=== PATIENT | male | born 1970 | race Hispanic/Latino ===

== ENCOUNTER 2017-11-18 17:39 | Emergency (ER) | payer SELFPAY ==
[2017-11-18] MEDS ORDERED: MORPHINE 4 MG/ML SYR ONE ×3 (18:12→22:27)
[2017-11-18] MEDS ORDERED: NA CHLORIDE 0.9% 1,000 ML ONE (18:12)
[2017-11-18] MEDS ORDERED: ONDANSETRON 4 MG/2 ML VIAL ONE ×2 (18:12→19:30)
[2017-11-18 18:15] LABS: Absolute Lymphocytes (CBC) 1.1 K/uL (0.7-4.9); Absolute Monocytes 0.3 K/uL (0.1-1.3); Absolute Neutrophil 9.1 K/uL (1.8-8.0); Basophils % 0.5 % (0-1.3); Eosinophils % 0.6 % (0-4.4); Hematocrit 43.8 % (39.6-49.0); Lymphocytes % 10.6 % (15.3-44.8); MCH 31.2 pg (27.0-35.0); MCV 89.5 fL (80-100); MPV 7.3 fL (7.6-11.3); Monocytes % 3.1 % (3.3-12.3)
[2017-11-18 18:38] LABS: ALT/SGPT 50 U/L (12-78); AST/SGOT 28 U/L (15-37); Albumin 3.9 g/dL (3.4-5.0); Alkaline Phosphatase 90 U/L (45-117); Amylase Level 53 U/L (25-115); BUN Blood Urea Nitrogen 19 mg/dL (7-18); Bicarbonate 29 mmol/L (21-32); Bilirubin Direct < 0.1 mg/dL (0-0.2); Bilirubin Total 0.4 mg/dL (0.2-1.0); Glucose Level 120 mg/dL (74-106); Lipase 185 U/L (73-393); Potassium 3.9 mmol/L (3.5-5.1); Protein, Total 8.3 g/dL (6.4-8.2); Sodium Level 140 mmol/L (136-145)
[2017-11-18 18:42] LABS: Blood Morphology Comment NOT SEEN (NOT SEEN); Platelet Estimate ADEQ; Urine White Blood Cell Casts OK
--- NOTE | 2017-11-18 20:34 | RAD REPORT ---
EXAM DESCRIPTION: CT - Abdomen Pelvis W Contrast - 11/18/2017 8:21 pm CLINICAL HISTORY: Right lower quadrant pain COMPARISON: None. TECHNIQUE: Biphasic, helical CT imaging of the abdomen and pelvis was performed following 100 ml non -ionic IV contrast. Oral contrast was given. All CT scans are performed using dose optimization technique as appropriate and may include automated exposure control or mA/KV adjustment according to patient size. FINDINGS: No suspicious findings in the lung bases. The liver, spleen, and pancreas show no suspicious findings. Gallbladder and biliary tree are also wi thout suspicious finding. Large area of diminished enhancement is seen involving 40-50% of the right renal parenchyma. No overa ll edema of the kidney and no perinephric stranding seen. Left kidney shows a normal enhancement shmuel malachi. No urinary bladder, prostate gland or seminal vesicle abnormality. In the acute clinical setting this is most likely a right-sided pyelonephritis. No abnormal enhancement of the ureter. Ischemic in jury to the kidney is possible though the patient is relatively young and there is no atherosclerotic change in the aorta. This single right renal artery appears to enhance normally into the pelvis. No dilated bowel loops or bowel wall thickening. The appendix is normal. No free air, free fluid or i nflammatory stranding. No hernia, mass or bulky lymphadenopathy. No adrenal abnormality. No suspicious bony findings. IMPRESSION: Abnormal, significant diminished enhancement involving 40-50% of the right renal parench yma. Right kidney does not appear edematous and there is no perinephric stranding. No enhancement of the jacobs of the ureter. Pyelonephritis would be the most likely etiology but needs correlation with history and any UA abnorm ality. Ischemic injury to the kidney is not excluded. However, the patient has no evidence for vascul ar disease. The right renal artery appears to enhance normally. No appendicitis or acute GI process.
[2017-11-18] MEDS ORDERED: CEFTRIAXONE/SWI 1gm 1 GM/10 ML SYR ONE (21:37)
[2017-11-18 21:45] LABS: Urine Amorphous Sediment 3+ /HPF (NONE SEEN); Urine Bacteria <20 /HPF (NONE SEEN); Urine Culture Reflex Order NOT NEEDED; Urine RBC <5 /HPF (NONE SEEN)
[2017-11-18 21:46] LABS: Urine Blood TRACE (NEG); Urine Glucose NEGATIVE (NEG); Urine Protein NEGATIVE (NEG); Urine pH 7.5 (5.0-7.0)
--- NOTE | 2017-11-18 22:57 | ER ---
Nurse's Notes [facility] Name: Kenneth Garner Age: 47 yrs Sex: Male : 1970 Arrival Date: 11/18/2017 Time: 17:42 Bed 13 Private MD: None, None Diagnosis: Unspecified abdominal pain Presentation: 11/18 17:44 Presenting complaint: Patient states: RLQ abdominal pain since this AM. Transition of aj care: patient was not received from another setting of care. Onset of symptoms was November 18, 2017. Risk Assessment: Do you want to hurt yourself or someone else? Patient reports no desire to harm self or others. Initial Sepsis Screen: Does the patient meet any 2 criteria? No. Patient's initial sepsis screen is negative. Does the patient have a suspected source of infection? No. Patient's initial sepsis screen is negative. Care prior to arrival: None. 17:44 Method Of Arrival: Ambulatory aj 17:44 Acuity: HARJINDER 3 aj Triage Assessment: 17:45 General: Appears in no apparent distress. uncomfortable, Behavior is calm, cooperative, aj appropriate for age. Pain: Complains of pain in right lower quadrant. Neuro: Level of Consciousness is awake, alert, obeys commands, Oriented to person, place, time, situation, Appropriate for age. Respiratory: Airway is patent Respiratory effort is even, unlabored, Respiratory pattern is regular, symmetrical. GI: Abdomen is flat, Reports lower abdominal pain, nausea. Derm: Skin is intact, is healthy with good turgor, Skin is pink, warm \T\ dry. normal. Historical: - Allergies: 17:45 No Known Allergies; aj - Home Meds: 17:45 None [Active]; aj - PMHx: 17:45 None; aj - PSHx: 17:45 None; aj - Immunization history:: Adult Immunizations up to date. - Social history:: Smoking status: Patient/guardian denies using tobacco. - Ebola Screening: : Patient negative for fever greater than or equal to 101.5 degrees Fahrenheit, and additional compatible Ebola Virus Disease symptoms Patient denies exposure to infectious person Patient denies travel to an Ebola-affected area in the 21 days before illness onset No symptoms or risks identified at this time. Screenin:00 Abuse screen: Denies threats or abuse. Denies injuries from another. Nutritional hb screening: No deficits noted. Tuberculosis screening: No symptoms or risk factors identified. Fall Risk None identified. Assessment: 18:00 General: Appears in no apparent distress. uncomfortable, Behavior is calm, cooperative. hb Pain: Pain currently is 8 out of 10 on a pain scale. Neuro: Level of Consciousness is awake, alert, obeys commands, Oriented to person, place, time, situation. Cardiovascular: Capillary refill < 3 seconds Patient's skin is warm and dry. Respiratory: Airway is patent Trachea midline Respiratory effort is even, unlabored, Respiratory pattern is regular, symmetrical, Breath sounds are clear bilaterally. GI: Abdomen is flat, Bowel sounds present X 4 quads. Abd is soft X 4 quads Abdomen is tender to palpation in right lower quadrant Reports lower abdominal pain, nausea. : No signs and/or symptoms were reported regarding the genitourinary system. EENT: No signs and/or symptoms were reported regarding the EENT system. Derm: Skin is intact, is healthy with good turgor, Skin is pink, warm \T\ dry. Musculoskeletal: No signs and/or symptoms reported regarding the musculoskeletal system. 18:26 Reassessment: Pt finished drinking oral contrast, CT notfied. hb 19:10 General: Appears uncomfortable, Behavior is calm, cooperative. Pain: Complains of pain ea in right lower quadrant Pain currently is 4 out of 10 on a pain scale. Quality of pain is described as aching, Alleviated by medications. Neuro: Level of Consciousness is awake, alert, obeys commands, Oriented to person, place, time, situation. Cardiovascular: Patient's skin is warm and dry. Respiratory: Airway is patent Respiratory effort is even, unlabored, Respiratory pattern is regular, symmetrical, Breath sounds are clear bilaterally. GI: Abdomen is flat, Bowel sounds present X 4 quads. Abd is soft X 4 quads Abdomen is tender to palpation in right lower quadrant Reports lower abdominal pain. : No signs and/or symptoms were reported regarding the genitourinary system. EENT: No signs and/or symptoms were reported regarding the EENT system. Derm: Skin is pink, warm \T\ dry. Musculoskeletal: No signs and/or symptoms reported regarding the musculoskeletal system. 20:30 Reassessment: Patient and/or family updated on plan of care and expected duration. Pain ea level reassessed. Patient is alert, oriented x 3, equal unlabored respirations, skin warm/dry/pink. 21:45 Reassessment: Patient and/or family updated on plan of care and expected duration. Pain ea level reassessed. Patient is alert, oriented x 3, equal unlabored respirations, skin warm/dry/pink. 22:14 Reassessment: Patient and/or family updated on plan of care and expected duration. Pain ea level reassessed. Patient is alert, oriented x 3, equal unlabored respirations, skin warm/dry/pink. Vital Signs: 17:45 BP 144 / 90; Pulse 57; Resp 20; Temp 97.9; Pulse Ox 98% on R/A; Weight 68.04 kg; Height aj 5 ft. 9 in. (175.26 cm); 18:27 BP 134 / 92; Pulse 61; Resp 15; Pulse Ox 100% on R/A; hb 19:06 Pain 4/10; ea 19:15 BP 138 / 97; Pulse 57; Resp 18; Pulse Ox 98% on R/A; Pain 4/10; ea 20:00 BP 117 / 78; Pulse 57; Resp 18; Pulse Ox 97% on R/A; Pain 4/10; ea 21:58 BP 138 / 92; Pulse 57; Resp 18; Pulse Ox 99% ; ea 22:58 BP 113 / 77; Pulse 52; Resp 18; Pulse Ox 97% on R/A; Pain 0/10; ea 17:45 Body Mass Index 22.15 (68.04 kg, 175.26 cm) ED Course: 17:42 Patient arrived in ED. mr 17:42 None, None is Private Physician. mr 17:45 Triage completed. aj 17:45 Arm band placed on right wrist. Patient placed in an exam room. aj 17:51 Antoine Hoff, ARTUR is PHCP. pm1 17:51 Kenny Corea MD is Attending Physician. pm1 18:00 Patient has correct armband on for positive identification. Bed in low position. Call hb light in reach. Side rails up X 1. 18:07 Cierra Rodriguez, RN is Primary Nurse. hb 18:09 Initial lab(s) drawn, by ct, sent to lab. Inserted saline lock: 18 gauge in right dh3 antecubital area, using aseptic technique. Blood collected. 19:15 Primary Nurse role handed off by Cierra Rodriguez, MAYNOR rg2 19:27 Lizzette Torres, MAYNOR is Primary Nurse. ea 20:[address] nj 20:21 CT completed. Patient tolerated procedure well. Patient moved back from CT. nj 20:21 CT Abd/Pelvis - W/Contrast In Process Unspecified. EDMS 22:10 Attending Physician role handed off by Kenny Corea MD kdr 22:10 Олег Rios MD is Attending Physician. kdr 22:56 Chandu Campbell MD is Referral Physician. pm1 23:05 IV discontinued, intact, bleeding controlled, No redness/swelling at site. Pressure ea dressing applied. 23:13 No provider procedures requiring assistance completed. ea Administered Medications: 18:13 Drug: Zofran 4 mg Route: IVP; Site: right antecubital; hb 19:06 Follow up: Response: No adverse reaction; Marked relief of symptoms ea 18:14 Drug: NS 0.9% 1000 ml Route: IV; Rate: 1000 ml; Site: right antecubital; hb 19:00 Follow up: Response: No adverse reaction; IV Status: Completed infusion; IV Intake: ea 1000ml 18:14 Drug: morphine 4 mg Route: IVP; Site: right antecubital; hb 19:06 Follow up: Pain 4/10 Adult; Response: No adverse reaction; Pain is decreased ea 19:40 Drug: morphine 4 mg Route: IVP; Site: right forearm; ea 20:00 Follow up: Response: No adverse reaction; Pain is decreased ea 19:41 Drug: Zofran 4 mg Route: IVP; Site: right forearm; ea 20:00 Follow up: Response: No adverse reaction; Marked relief of symptoms ea 21:41 Drug: Rocephin 1 grams Route: IV; Rate: calculated rate; Site: right antecubital; ea 22:30 Follow up: Response: No adverse reaction; IV Status: Completed infusion ea 22:27 Drug: morphine 4 mg Route: IVP; Site: right antecubital; ea 23:16 Follow up: Response: No adverse reaction; Pain is decreased ea Intake: 19:00 IV: 1000ml; Total: 1000ml. ea Outcome: 22:57 Discharge ordered by . pm1 23:05 Condition: good ea 23:05 Discharge instructions given to patient, family, Instructed on discharge instructions, follow up and referral plans. medication usage, Demonstrated understanding of instructions, follow-up care, medications, Prescriptions given X 1. 23:13 Discharged to home via wheelchair, with family. ea 23:17 Patient left the ED. ea Signatures: Dispatcher [employer] EDMS Lincoln Reeves rg2 Haven Alford, MAYNOR RN Олег Richardson MD MD kdr Rivera, Maria mr VannaAntoine loredo, VICTORIAN LITERATURE PROFESSOR VICTORIAN LITERATURE PROFESSOR pm1 Cierra Rodriguez, MAYNOR RN Rishi Garza Deanna 3 Lizzette Torres RN RN ea
--- NOTE | 2017-11-18 22:57 | EDPHYS ---
Physician Documentation [facility] Name: Kenneth Garner Age: 47 yrs Sex: Male : 1970 Arrival Date: 11/18/2017 Time: 17:42 Bed 13 Private MD: None, None ED Physician Олег Rios HPI: 11/18 18:02 This 47 yrs old Male presents to ER via Ambulatory with complaints of pm1 Abdominal Pain, Nausea. 18:02 The patient presents with abdominal pain right lower quadrant. Onset: The pm1 symptoms/episode began/occurred this morning. The symptoms do not radiate. Associated signs and symptoms: Pertinent positives: nausea, subjective fever, Pertinent negatives: diarrhea, vomiting. The symptoms are described as achy. Modifying factors: The symptoms are alleviated by nothing, the symptoms are aggravated by walking. Severity of pain: in the emergency department the pain is actually worse. The patient has not experienced similar symptoms in the past. The patient has not recently seen a physician, and does not have an established primary care provider. Historical: - Allergies: 17:45 No Known Allergies; aj - Home Meds: 17:45 None [Active]; aj - PMHx: 17:45 None; aj - PSHx: 17:45 None; aj - Immunization history:: Adult Immunizations up to date. - Social history:: Smoking status: Patient/guardian denies using tobacco. - Ebola Screening: : Patient negative for fever greater than or equal to 101.5 degrees Fahrenheit, and additional compatible Ebola Virus Disease symptoms Patient denies exposure to infectious person Patient denies travel to an Ebola-affected area in the 21 days before illness onset No symptoms or risks identified at this time. ROS: 18:02 Constitutional: Negative for fever, chills, and weight loss, Eyes: Negative for injury, pm1 pain, redness, and discharge, ENT: Negative for injury, pain, and discharge, Neck: Negative for injury, pain, and swelling, Cardiovascular: Negative for chest pain, palpitations, and edema, Respiratory: Negative for shortness of breath, cough, wheezing, and pleuritic chest pain. 18:02 Back: Negative for injury and pain, : Negative for injury, bleeding, discharge, and swelling, MS/Extremity: Negative for injury and deformity, Skin: Negative for injury, rash, and discoloration, Neuro: Negative for headache, weakness, numbness, tingling, and seizure. 18:02 Abdomen/GI: Positive for abdominal pain, nausea, Negative for vomiting, diarrhea. Exam: 18:02 Constitutional: This is a well developed, well nourished patient who is awake, alert, pm1 and in no acute distress. Head/Face: Normocephalic, atraumatic. Eyes: Pupils equal round and reactive to light, extra-ocular motions intact. Lids and lashes normal. Conjunctiva and sclera are non-icteric and not injected. Cornea within normal limits. Periorbital areas with no swelling, redness, or edema. ENT: Nares patent. No nasal discharge, no septal abnormalities noted. Tympanic membranes are normal and external auditory canals are clear. Oropharynx with no redness, swelling, or masses, exudates, or evidence of obstruction, uvula midline. Mucous membranes moist. Neck: Trachea midline, no thyromegaly or masses palpated, and no cervical lymphadenopathy. Supple, full range of motion without nuchal rigidity, or vertebral point tenderness. No Meningismus. Chest/axilla: Normal chest wall appearance and motion. Nontender with no deformity. No lesions are appreciated. Cardiovascular: Regular rate and rhythm with a normal S1 and S2. No gallops, murmurs, or rubs. Normal PMI, no JVD. No pulse deficits. Respiratory: Lungs have equal breath sounds bilaterally, clear to auscultation and percussion. No rales, rhonchi or wheezes noted. No increased work of breathing, no retractions or nasal flaring. 18:02 Back: No spinal tenderness. No costovertebral tenderness. Full range of motion. Skin: Warm, dry with normal turgor. Normal color with no rashes, no lesions, and no evidence of cellulitis. MS/ Extremity: Pulses equal, no cyanosis. Neurovascular intact. Full, normal range of motion. 18:02 Abdomen/GI: Inspection: abdomen appears normal, Palpation: soft, mild abdominal tenderness, in the right lower quadrant, mass, is not appreciated, rebound tenderness, is not appreciated. 18:02 Neuro: Orientation: is normal, Motor: moves all fours. Vital Signs: 17:45 BP 144 / 90; Pulse 57; Resp 20; Temp 97.9; Pulse Ox 98% on R/A; Weight 68.04 kg; Height aj 5 ft. 9 in. (175.26 cm); 18:27 BP 134 / 92; Pulse 61; Resp 15; Pulse Ox 100% on R/A; hb 19:06 Pain 4/10; ea 19:15 BP 138 / 97; Pulse 57; Resp 18; Pulse Ox 98% on R/A; Pain 4/10; ea 20:00 BP 117 / 78; Pulse 57; Resp 18; Pulse Ox 97% on R/A; Pain 4/10; ea 21:58 BP 138 / 92; Pulse 57; Resp 18; Pulse Ox 99% ; ea 22:58 BP 113 / 77; Pulse 52; Resp 18; Pulse Ox 97% on R/A; Pain 0/10; ea 17:45 Body Mass Index 22.15 (68.04 kg, 175.26 cm) aj MDM: 17:54 Patient medically screened. pm1 22:50 Physician consultation: Soham Garza MD was called at 22:45, was contacted at 22:45, pm1 regarding consult, patient's condition, recommends consultation with urology. Unlikely pyelonephritis or ischemic injury. Possibly mass. 22:55 ED course: Message left with Dr. Campbell. Discussed consultation with Dr. Garza with Dr. letty Rios and he recommends out patient follow up with Dr. Campbell. No need for admission. 22:56 Data reviewed: vital signs. Data interpreted: Pulse oximetry: on room air is 99 %. pm1 Interpretation: normal. Counseling: I had a detailed discussion with the patient and/or guardian regarding: the historical points, exam findings, and any diagnostic results supporting the discharge/admit diagnosis, lab results, radiology results, the need for outpatient follow up, a urologist, to return to the emergency department if symptoms worsen or persist or if there are any questions or concerns that arise at home. 11/18 18:01 Order name: Amylase, Serum; Complete Time: 18:48 pm1 11/18 18:01 Order name: Basic Metabolic Panel; Complete Time: 18:48 pm1 11/18 18:01 Order name: CBC with Diff; Complete Time: 18:48 pm1 11/18 18:01 Order name: Creatinine for Radiology; Complete Time: 18:48 pm1 11/18 18:01 Order name: Hepatic Function; Complete Time: 18:48 pm1 11/18 18:01 Order name: Lipase; Complete Time: 18:48 pm1 11/18 18:01 Order name: Urine Microscopic Only; Complete Time: 22:10 pm1 11/18 18:01 Order name: CT Abd/Pelvis - W/Contrast; Complete Time: 20:38 pm1 11/18 18:17 Order name: CBC Smear Scan; Complete Time: 18:48 EDMS 11/18 20:42 Order name: Blood Culture Adult (2) pm1 11/18 20:42 Order name: Urine Culture pm1 11/18 20:43 Order name: Blood Culture EDMS 11/18 21:19 Order name: Urine Dipstick--Ancillary (enter results) rg2 11/18 21:20 Order name: Urine Dipstick-Ancillary; Complete Time: 22:10 EDMS 11/18 18:01 Order name: IV Saline Lock; Complete Time: 18:10 pm1 11/18 18:01 Order name: Labs collected and sent; Complete Time: 18:10 pm1 11/18 18:01 Order name: Urine Dipstick-Ancillary (obtain specimen); Complete Time: 21:42 pm1 11/18 18:01 Order name: NPO; Complete Time: 18:10 pm1 Administered Medications: 18:13 Drug: Zofran 4 mg Route: IVP; Site: right antecubital; hb 19:06 Follow up: Response: No adverse reaction; Marked relief of symptoms ea 18:14 Drug: NS 0.9% 1000 ml Route: IV; Rate: 1000 ml; Site: right antecubital; hb 19:00 Follow up: Response: No adverse reaction; IV Status: Completed infusion; IV Intake: ea 1000ml 18:14 Drug: morphine 4 mg Route: IVP; Site: right antecubital; hb 19:06 Follow up: Pain 4/10 Adult; Response: No adverse reaction; Pain is decreased ea 19:40 Drug: morphine 4 mg Route: IVP; Site: right forearm; ea 20:00 Follow up: Response: No adverse reaction; Pain is decreased ea 19:41 Drug: Zofran 4 mg Route: IVP; Site: right forearm; ea 20:00 Follow up: Response: No adverse reaction; Marked relief of symptoms ea 21:41 Drug: Rocephin 1 grams Route: IV; Rate: calculated rate; Site: right antecubital; ea 22:30 Follow up: Response: No adverse reaction; IV Status: Completed infusion ea 22:27 Drug: morphine 4 mg Route: IVP; Site: right antecubital; ea 23:16 Follow up: Response: No adverse reaction; Pain is decreased ea Disposition: 23:36 Co-signature as Attending Physician, Олег Rios MD I agree with the assessment and kdr plan of care. Disposition: 11/18/17 22:57 Discharged to Home. Impression: Unspecified abdominal pain. - Condition is Stable. - Discharge Instructions: Abdominal Pain, Adult. - Prescriptions for Tylenol- Codeine #3 300-30 mg Oral Tablet - take 2 tablets by ORAL route every 6 hours As needed; 20 tablet. - Medication Reconciliation Form, Thank You Letter, Prescription Opioid Use, Work release form form. - Follow up: Emergency Department; When: As needed; Reason: Worsening of condition. Follow up: Chandu Campbell MD; When: 2 - 3 days; Reason: Recheck today's complaints, Continuance of care, Re-evaluation by your physician. - Problem is new. - Symptoms have improved. Signatures: Dispatcher [employer] EDHaven Edward RN RN aj Rittger, Kevin, MD MD kdr Marinas, Patrick, NP BUILDING SERVICES SUPERVISOR pm1 Cierra Rodriguez, Lizzette Strange RN, RN RN ea Corrections: (The following items were deleted from the chart) 23:17 22:57 11/18/2017 22:57 Discharged to Home. Impression: Unspecified abdominal pain. ea Condition is Stable. Forms are Medication Reconciliation Form, Thank You Letter, Antibiotic Education, Prescription Opioid Use. Follow up: Emergency Department; When: As needed; Reason: Worsening of condition. Follow up: Chandu Campbell; When: 2 - 3 days; Reason: Recheck today's complaints, Continuance of care, Re-evaluation by your physician. Problem is new. Symptoms have improved. pm1
== END 2017-11-18 23:17 | disposition home or self-care (01) ==
LOC: ER 17:39
DX: R10.31 Right lower quadrant pain (principal)
CPT/HCPCS: 36415; 74177; 80048; 80076; 81003; 81015; 82150; 83690; 85025; 87040; 87086; 87088; 99284; J0696; J2405; J7030; Q9967